=== PATIENT | male | born 1990 | race Hispanic/Latino ===

== ENCOUNTER 2019-01-19 09:56 | Emergency (ER) | payer SELFPAY ==
[2019-01-19 10:36] LABS: HEMATOCRIT 44.9 % (39.0-50.0); HEMOGLOBIN 16.4 g/dl (14.0-18.0); IMMATURE GRANULOCYTES 0.2 % (0.0-5.0); MEAN CORPUSCULAR HGB 31.8 pG CALC (26.0-32.0); MEAN CORPUSCULAR HGB CONC 36.5 g/L CALC (32.0-36.0); NEUT# 3.19 thou/uL (1.82-7.42); RED BLOOD COUNT 5.16 mill/uL (4.70-6.10); RED CELL DISTRI WIDTH 11.7 % (11.5-15.5)
[2019-01-19] MEDS ORDERED: TAM75CAP PO (10:52)
[2019-01-19 11:00] VITALS: BP 131/79
== END 2019-01-19 11:00 | disposition home or self-care (01) | DRG 153 ==
LOC: ED 09:56
PROVIDERS: Family Medicine
DX: J11.1 Influenza due to unidentified influenza virus with other respiratory manifestations (principal)

== ENCOUNTER 2023-09-23 17:09 | Observation (INO) | payer SELFPAY ==
[2023-09-23] VITALS (7 sets, daily range): BP systolic 111–128; BP diastolic 77–86
[~2023-09-23 17:09] MED LIST: TAM75CAP PO
[2023-09-23] MEDS ORDERED: ONDANSETRON HCl 4 MG/2 ML SDV IV ONE (17:35)
[2023-09-23] MEDS ORDERED: SODIUM CHLORIDE 0.9% 1,000 ML IV ONE ×3 (17:35→19:50)
[2023-09-23] MEDS ORDERED: KETOROLAC TROMETHAMINE 15 MG/ML SDV IV ONE (17:40)
[2023-09-23 17:49] LABS: BASO% 0.1 % (0-3); EOS% 0.1 % (0-8); HEMATOCRIT 48.5 % (39.0-50.0); HEMOGLOBIN 17.9 g/dl (14.0-18.0); IMMATURE GRANULOCYTES 0.3 % (0.0-5.0); LYMPH% 8.1 % (15-41); MEAN CELL VOLUME 86.3 fL CALC (80.0-100.0); MEAN CORPUSCULAR HGB 31.9 pG CALC (26.0-32.0); MEAN CORPUSCULAR HGB CONC 36.9 g/dL CAL (32.0-36.0); MONO% 2.2 % (2-13); NEUT# 11.15 thou/uL (1.82-7.42); NEUT% 89.2 % (42-76); RED BLOOD COUNT 5.62 mill/uL (4.70-6.10); RED CELL DISTRI WIDTH 11.9 % (11.5-15.5)
[2023-09-23 18:03] LABS: ALBUMIN 5.7 g/dL (3.2-5.0); BILIRUBIN, TOTAL 1.5 mg/dL (0.2-1.3); CREATININE 3.2 mg/dL (0.7-1.3); POTASSIUM 4.8 mmol/l (3.5-5.1)
[2023-09-23 18:11] LABS: TOTAL PROTEIN 11.7 g/dL (6.3-8.2)
[2023-09-23] MEDS ORDERED: INSULIN REGULAR (HUMAN) IN SOD 100 ML IV ONE (18:40)
[2023-09-23 19:46] LABS: URINE BLOOD DIPSTICK Trace-lysed (NEGATIVE); URINE GLUCOSE - DIPSTICK 100 mg/dL (NEGATIVE); URINE KETONE 15 mg/dL (NEGATIVE); URINE LEUK ESTERASE Negative (NEGATIVE); URINE NITRITE - DIPSTICK Negative (Negative); URINE PROTEIN - DIPSTICK >=300 mg/dL (NEG-TRACE); URINE SPECIFIC GRAVITY >=1.030; URINE UROBILINOGEN - DIPSTICK 0.2 E.U./dL (0.2)
[2023-09-23 19:47] LABS: URINE COLOR Dark yellow
[2023-09-23 19:58] LABS: URINE RENAL EPITHELIAL CELLS FEW hpf
[2023-09-23 19:59] LABS: URINE AMORPH SEDIMENT MANY hpf (NONE-FER); URINE CALCIUM OXALATE CRYSTALS MANY lpf
[2023-09-23] MEDS ORDERED: ACETAMINOPHEN 325 MG/TAB PO PRN (20:25)
[2023-09-23] MEDS ORDERED: SODIUM CHLORIDE 0.9% 1,000 ML IV PRN (20:25)
[2023-09-23] MEDS ORDERED: ONDANSETRON HCl 4 MG/2 ML SDV IV PRN (20:30)
[2023-09-23] MEDS ORDERED: Heparin SODIUM (Porcine) 5,000 UNITS/ML SDV SC SCH (22:00)
[2023-09-24] MEDS ORDERED: MAGNESIUM (00:32)
[2023-09-24] MEDS ORDERED: [UNRECOGNIZED DRUG - OTHER] PO (00:34)
[2023-09-24 03:43] VITALS: BP 97/53
[2023-09-24 05:53] LABS: BASO% 0.1 % (0-3); IMMATURE GRANULOCYTES 0.3 % (0.0-5.0); LYMPH% 25.9 % (15-41); MEAN CELL VOLUME 89.7 fL CALC (80.0-100.0); MEAN CORPUSCULAR HGB 32.5 pG CALC (26.0-32.0); MEAN CORPUSCULAR HGB CONC 36.2 g/dL CAL (32.0-36.0); MONO% 10.4 % (2-13); NEUT# 4.56 thou/uL (1.82-7.42); NEUT% 62.3 % (42-76); RED BLOOD COUNT 3.97 mill/uL (4.70-6.10); RED CELL DISTRI WIDTH 12.4 % (11.5-15.5)
[2023-09-24 05:57] LABS: HEMATOCRIT 35.6 % (39.0-50.0); HEMOGLOBIN 12.9 g/dl (14.0-18.0)
[2023-09-24 06:05] LABS: MAGNESIUM 2.1 mg/dL (1.6-2.3); POTASSIUM 4.5 mmol/l (3.5-5.1)
[2023-09-24 06:07] LABS: ALBUMIN 3.7 g/dL (3.2-5.0); CREATININE 1.1 mg/dL (0.7-1.3); TOTAL PROTEIN 6.8 g/dL (6.3-8.2)
[2023-09-24 06:48] VITALS: BP 110/69
== END 2023-09-24 13:12 | disposition home or self-care (01) | DRG 923 ==
LOC: ED 17:09 → ED-I 20:08 → ED 20:16 → MS2 20:17
PROVIDERS: Nurse Practitioner; Nurse Practitioner Family; ADMIT Student in an Organized Health Care Education/Training Program; ATTEND Student in an Organized Health Care Education/Training Program
DX: T67.5XXA Heat exhaustion, unspecified, initial encounter (principal); N17.9 Acute kidney failure, unspecified; E86.0 Dehydration; X30.XXXA Exposure to excessive natural heat, initial encounter; Y92.89 Other specified places as the place of occurrence of the external cause; Y99.0 Civilian activity done for income or pay
CPT/HCPCS: G0378

== ENCOUNTER 2023-09-28 21:56 | Observation (INO) | payer SELFPAY ==
[~2023-09-28] VITALS: Ht 165.1 cm; Wt 75.4 kg
[~2023-09-28 21:56] MED LIST changes: +MAGNESIUM; +[UNRECOGNIZED DRUG - OTHER] PO
[2023-09-28] MEDS ORDERED: SODIUM CHLORIDE 0.9% 1,000 ML IV STA (22:13)
[2023-09-28] MEDS ORDERED: PROMETHAZINE HCL 25 MG/ML AMP IV ONE (22:15)
[2023-09-28] MEDS ORDERED: DICYCLOMINE HCL 20 MG/2 ML VIAL IM ONE (22:15)
[2023-09-28 22:18] VITALS: BP 119/87
[2023-09-28 22:30] VITALS: BP 127/85
[2023-09-28 22:31] LABS: BASO% 0.2 % (0-3); IMMATURE GRANULOCYTES 0.6 % (0.0-5.0); LYMPH% 8.3 % (15-41); MEAN CELL VOLUME 86.1 fL CALC (80.0-100.0); MEAN CORPUSCULAR HGB 31.5 pG CALC (26.0-32.0); MEAN CORPUSCULAR HGB CONC 36.6 g/dL CAL (32.0-36.0); MONO% 5.3 % (2-13); NEUT# 11.08 thou/uL (1.82-7.42); NEUT% 85.6 % (42-76); RED BLOOD COUNT 5.53 mill/uL (4.70-6.10); RED CELL DISTRI WIDTH 11.7 % (11.5-15.5)
[2023-09-28 22:32] LABS: HEMATOCRIT 47.6 % (39.0-50.0); HEMOGLOBIN 17.4 g/dl (14.0-18.0)
[2023-09-28 22:38] LABS: ALKALINE PHOSPHATASE 142 u/l (38-126); BILIRUBIN, TOTAL 1.2 mg/dL (0.2-1.3); BUN 35 mg/dL (9-20); CARBON DIOXIDE 22 mmol/l (22-30); CPK 202 u/l (55-170); MAGNESIUM 2.5 mg/dL (1.6-2.3); SODIUM 139 mmol/l (137-146)
[2023-09-28 22:46] LABS: BUN/CREATININE RATIO 10 (12-20 (CALC)); CREATININE 3.6 mg/dL (0.7-1.3); ESTIMATED GFR 22 ML/MIN (>=90 (CALC))
[2023-09-28 22:47] LABS: ALBUMIN > 6.0 g/dL (3.2-5.0); ANION GAP 26 (6-22 (CALC)); CHLORIDE 96 mmol/l (95-108); SGOT/AST 75 u/l (17-59); TOTAL PROTEIN 11.5 g/dL (6.3-8.2)
[2023-09-28 23:00] VITALS: BP 133/87
[2023-09-28 23:21] LABS: URINE BLOOD DIPSTICK Trace-intact (NEGATIVE); URINE GLUCOSE - DIPSTICK Negative (NEGATIVE); URINE KETONE 15 mg/dL (NEGATIVE); URINE LEUK ESTERASE Negative (NEGATIVE); URINE PROTEIN - DIPSTICK >=300 mg/dL (NEG-TRACE); URINE SPECIFIC GRAVITY >=1.030; URINE UROBILINOGEN - DIPSTICK 0.2 E.U./dL (0.2)
[2023-09-28 23:30] LABS: URINE COLOR Yellow; URINE NITRITE - DIPSTICK Negative (Negative)
[2023-09-28 23:31] LABS: URINE BACTERIA MANY hpf; URINE EPITHELIAL CELLS MODERATE EPI/hpf (0-FEW)
[2023-09-28 23:32] VITALS: BP 118/82
[2023-09-28 23:34] LABS: URINE CALCIUM OXALATE CRYSTALS MANY lpf
[2023-09-28] MEDS ORDERED: ALUM & MAG HYDROX-SIMETHICONE 30 ML PO ONE (23:40)
[2023-09-28] MEDS ORDERED: LIDOCAINE VISCOUS 2% 15 ML UDC PO ONE (23:40)
[2023-09-28] MEDS ORDERED: SODIUM CHLORIDE 0.9% 1,000 ML IV ONE (23:50)
[2023-09-28] MEDS ORDERED: FAMOTIDINE 10MG/ML 2ML SDV IV PRN (23:55)
[2023-09-28] MEDS ORDERED: ALUM & MAG HYDROX-SIMETHICONE 30 ML PO PRN (23:55)
[2023-09-28] MEDS ORDERED: SODIUM CHLORIDE 0.9% 1,000 ML IV SCH (23:55)
[2023-09-28] MEDS ORDERED: ONDANSETRON 4 MG/TAB ODT PO PRN (23:55)
[2023-09-28] MEDS ORDERED: ENOXAPARIN SODIUM 40 MG/0.4 ML SYR SC ONE (23:55)
[2023-09-28] MEDS ORDERED: MAGNESIUM HYDROXIDE 30 ML UDC PO PRN (23:55)
[2023-09-28] MEDS ORDERED: ACETAMINOPHEN 325 MG/TAB PO PRN (23:55)
[2023-09-28] MEDS ORDERED: ONDANSETRON HCl 4 MG/2 ML SDV IV PRN (23:55)
[2023-09-29] VITALS (8 sets, daily range): BP systolic 91–138; BP diastolic 55–86
[2023-09-29] MEDS ORDERED: ACETAMINOPHEN 325 MG/TAB PO PRN (00:35)
[2023-09-29] MEDS ORDERED: FAMOTIDINE 10MG/ML 2ML SDV IV PRN (00:35)
[2023-09-29] MEDS ORDERED: ALUM & MAG HYDROX-SIMETHICONE 30 ML PO PRN (00:35)
[2023-09-29 07:01] LABS: POTASSIUM 4.4 mmol/l (3.5-5.1)
[2023-09-29 07:11] LABS: CREATININE 1.3 mg/dL (0.7-1.3)
[2023-09-29] MEDS ORDERED: SODIUM CHLORIDE 0.9% 1,000 ML IV PRN (17:35)
[2023-09-30] MEDS ORDERED: ALUM & MAG HYDROX-SIMETHICONE 30 ML PO PRN (00:30)
[2023-09-30] MEDS ORDERED: ACETAMINOPHEN 325 MG/TAB PO PRN (00:35)
[2023-09-30] MEDS ORDERED: DICYCLOMINE HCL 10 MG/CAP PO PRN (00:35)
[2023-09-30 04:22] VITALS: BP 102/63
[2023-09-30 06:39] LABS: POTASSIUM 4.5 mmol/l (3.5-5.1)
[2023-09-30 07:22] VITALS: BP 115/53
== END 2023-09-30 12:51 | disposition home or self-care (01) | DRG 923 ==
LOC: ED 21:56 → ED-I 23:30 → ED 23:55 → MS2 23:55
PROVIDERS: Family Medicine; ADMIT Student in an Organized Health Care Education/Training Program; ATTEND Student in an Organized Health Care Education/Training Program
DX: T67.3XXA Heat exhaustion, anhydrotic, initial encounter (principal); N17.9 Acute kidney failure, unspecified; E86.0 Dehydration; X30.XXXA Exposure to excessive natural heat, initial encounter; Y93.89 Activity, other specified; Y92.89 Other specified places as the place of occurrence of the external cause; Y99.0 Civilian activity done for income or pay
CPT/HCPCS: G0378; J1650